=== PATIENT | female | born 1970 | race Two or more races ===

== ENCOUNTER 2021-06-19 09:17 | Emergency (ER) | payer OTHER ==
[~2021-06-19] VITALS: Ht 160 cm; Wt 72.6 kg
== END 2021-06-19 13:29 | disposition home or self-care (01) ==
LOC: ER 09:17
DX: R53.81 Other malaise (principal); B34.9 Viral infection, unspecified; Z03.818 Encounter for observation for suspected exposure to other biological agents ruled out

== ENCOUNTER 2021-07-21 06:24 | Outpatient (CLI) | payer OTHER | END 2021-07-21 06:25 | disposition home or self-care (01) | LOC: LAB 06:24 | PROVIDERS: ATTEND Internal Medicine | DX: D64.89 Other specified anemias (principal); E78.2 Mixed hyperlipidemia; E03.8 Other specified hypothyroidism; E11.9 Type 2 diabetes mellitus without complications ==

== ENCOUNTER 2021-09-07 12:41 | Outpatient (CLI) | payer OTHER | END 2021-09-07 13:02 | disposition home or self-care (01) | LOC: TOM 12:41 | PROVIDERS: ATTEND Internal Medicine | DX: J20.8 Acute bronchitis due to other specified organisms (principal) ==

== ENCOUNTER 2021-10-24 06:11 | Outpatient (CLI) | payer OTHER | END 2021-10-24 06:12 | disposition home or self-care (01) | LOC: LAB 06:11 | PROVIDERS: ATTEND Internal Medicine | DX: E03.8 Other specified hypothyroidism (principal); D64.89 Other specified anemias; E78.2 Mixed hyperlipidemia; E11.9 Type 2 diabetes mellitus without complications; E55.9 Vitamin D deficiency, unspecified ==

== ENCOUNTER 2021-11-13 10:17 | Emergency (ER) | payer OTHER ==
[~2021-11-13] VITALS: Ht 160 cm; Wt 71.7 kg
== END 2021-11-13 16:54 | disposition home or self-care (01) ==
LOC: ER 10:17
DX: R10.9 Unspecified abdominal pain (principal); R11.0 Nausea

== ENCOUNTER 2022-01-07 05:55 | Emergency (ER) | payer OTHER ==
[~2022-01-07] VITALS: Ht 160 cm; Wt 72.6 kg
[2022-01-07] MEDS ORDERED: PERCOCET 5-3251 EACH PO (06:46)
[2022-01-07] MEDS ORDERED: KETO10TA2 PO (06:46)
== END 2022-01-07 06:54 | disposition home or self-care (01) ==
LOC: ER 05:55
DX: M25.512 Pain in left shoulder (principal)

== ENCOUNTER 2022-01-09 10:33 | Outpatient (CLI) | payer OTHER ==
[~2022-01-09 10:33] MED LIST: KETO10TA2 PO; PERCOCET 5-3251 EACH PO
== END 2022-01-09 10:57 | disposition home or self-care (01) ==
LOC: MRI 10:33
PROVIDERS: ATTEND Orthopaedic Surgery
DX: M65.812 Other synovitis and tenosynovitis, left shoulder (principal)
CPT/HCPCS: 73218

== ENCOUNTER 2022-01-10 06:29 | Outpatient (CLI) | payer OTHER | END 2022-01-10 06:30 | disposition home or self-care (01) | LOC: LAB 06:29 | PROVIDERS: ATTEND Internal Medicine | DX: E55.9 Vitamin D deficiency, unspecified (principal); E78.2 Mixed hyperlipidemia; E03.8 Other specified hypothyroidism; E11.9 Type 2 diabetes mellitus without complications; N39.0 Urinary tract infection, site not specified ==

== ENCOUNTER 2022-02-08 06:19 | Outpatient (CLI) | payer OTHER ==
[2022-02-08] MEDS ORDERED: ACETAMINOPHEN500 M2 (13:32)
== END 2022-02-08 06:20 | disposition home or self-care (01) ==
LOC: LAB 06:19
PROVIDERS: ATTEND Internal Medicine
DX: N39.0 Urinary tract infection, site not specified (principal)

== ENCOUNTER 2022-03-10 06:16 | Outpatient (CLI) | payer OTHER ==
[~2022-03-10 06:16] MED LIST changes: +ACETAMINOPHEN500 M2
== END 2022-03-10 06:22 | disposition home or self-care (01) ==
LOC: LAB 06:16
PROVIDERS: ATTEND Orthopaedic Surgery
DX: D68.9 Coagulation defect, unspecified (principal); Z03.818 Encounter for observation for suspected exposure to other biological agents ruled out; S83.271A Complex tear of lateral meniscus, current injury, right knee, initial encounter

== ENCOUNTER 2022-03-13 16:08 | Emergency (ER) | payer OTHER ==
[~2022-03-13] VITALS: Ht 160 cm; Wt 70.3 kg
[2022-03-13] MEDS ORDERED: MULTI VITAMIN1 EACH PO (16:21)
== END 2022-03-13 16:50 | disposition home or self-care (01) ==
LOC: ER 16:08
DX: M75.02 Adhesive capsulitis of left shoulder (principal); M25.512 Pain in left shoulder

== ENCOUNTER 2022-04-11 08:30 | Outpatient (CLI) | payer OTHER ==
[~2022-04-11 08:30] MED LIST changes: +MULTI VITAMIN1 EACH PO
== END 2022-04-11 08:31 | disposition home or self-care (01) ==
LOC: NUCLEAR 08:30
PROVIDERS: ATTEND Internal Medicine
DX: M81.0 Age-related osteoporosis without current pathological fracture (principal)

== ENCOUNTER 2022-04-12 05:48 | Emergency (ER) | payer OTHER ==
[~2022-04-12] VITALS: Ht 160 cm; Wt 70.3 kg
== END 2022-04-12 10:31 | disposition home or self-care (01) ==
LOC: ER 05:48
DX: T78.40XA Allergy, unspecified, initial encounter (principal); X58.XXXA Exposure to other specified factors, initial encounter

== ENCOUNTER 2022-04-18 06:30 | Outpatient (CLI) | payer OTHER | END 2022-04-18 06:31 | disposition home or self-care (01) | LOC: LAB 06:30 | PROVIDERS: ATTEND Internal Medicine | DX: E11.9 Type 2 diabetes mellitus without complications (principal); E78.2 Mixed hyperlipidemia; D69.9 Hemorrhagic condition, unspecified; E03.9 Hypothyroidism, unspecified ==

== ENCOUNTER 2022-04-18 07:07 | Outpatient (CLI) | payer OTHER | END 2022-04-18 07:14 | disposition home or self-care (01) | LOC: MAMO-SONO 07:07 | PROVIDERS: ATTEND Internal Medicine | DX: N60.11 Diffuse cystic mastopathy of right breast (principal); N60.12 Diffuse cystic mastopathy of left breast ==

== ENCOUNTER → 2022-09-11 06:26 | Outpatient (CLI) | payer OTHER | END | disposition home or self-care (01) | LOC: LAB 06:26 | PROVIDERS: ATTEND Internal Medicine | DX: E55.9 Vitamin D deficiency, unspecified (principal); E78.2 Mixed hyperlipidemia; E03.0 Congenital hypothyroidism with diffuse goiter; E11.9 Type 2 diabetes mellitus without complications; D64.9 Anemia, unspecified ==

== ENCOUNTER 2022-09-30 02:48 | Emergency (ER) | payer OTHER ==
[~2022-09-30] VITALS: Ht 160 cm; Wt 72.6 kg
== END 2022-09-30 06:53 | disposition home or self-care (01) ==
LOC: ER 02:48
DX: B34.9 Viral infection, unspecified (principal)

== ENCOUNTER 2022-11-10 07:29 | Outpatient (CLI) | payer OTHER | END 2022-11-10 07:31 | disposition home or self-care (01) | LOC: MAMO-SONO 07:29 | PROVIDERS: ATTEND Obstetrics & Gynecology | DX: D24.9 Benign neoplasm of unspecified breast (principal); N64.4 Mastodynia ==

== ENCOUNTER 2023-03-01 01:51 | Emergency (ER) | payer OTHER ==
[~2023-03-01] VITALS: Ht 160 cm; Wt 74.4 kg
[2023-03-01] MEDS ORDERED: PYRIDIUM DS200 MG PO (04:24)
[2023-03-01] MEDS ORDERED: CEPHALEXIN500 MG PO (04:24)
== END 2023-03-01 04:33 | disposition home or self-care (01) ==
LOC: ER 01:51
DX: N30.80 Other cystitis without hematuria (principal)

== ENCOUNTER 2023-03-21 06:30 | Outpatient (CLI) | payer OTHER ==
[~2023-03-21 06:30] MED LIST changes: +CEPHALEXIN500 MG PO; +PYRIDIUM DS200 MG PO
== END 2023-03-21 06:32 | disposition home or self-care (01) ==
LOC: LAB 06:30
PROVIDERS: ATTEND Internal Medicine
DX: D64.9 Anemia, unspecified (principal); E78.2 Mixed hyperlipidemia; E03.8 Other specified hypothyroidism; E11.9 Type 2 diabetes mellitus without complications

== ENCOUNTER 2023-07-16 13:32 | Outpatient (CLI) | payer OTHER | END 2023-07-16 13:35 | disposition home or self-care (01) | LOC: MAMO-SONO 13:32 | PROVIDERS: ATTEND Surgery Surgical Oncology | DX: D48.62 Neoplasm of uncertain behavior of left breast (principal); D64.2 Secondary sideroblastic anemia due to drugs and toxins ==

== ENCOUNTER 2023-09-04 04:38 | Emergency (ER) | payer OTHER ==
[~2023-09-04] VITALS: Ht 160 cm; Wt 72.6 kg
== END 2023-09-04 07:52 | disposition home or self-care (01) ==
LOC: ER 04:38
DX: G43.909 Migraine, unspecified, not intractable, without status migrainosus (principal)

== ENCOUNTER 2023-09-25 07:08 | Outpatient (CLI) | payer OTHER | END 2023-09-25 07:30 | disposition home or self-care (01) | LOC: TOM 07:08 | DX: G43.019 Migraine without aura, intractable, without status migrainosus (principal) ==

== ENCOUNTER → 2023-11-16 06:06 | Outpatient (CLI) | payer OTHER ==
[2023-11-16 07:36] LABS: URINE APPEARANCE Cloudy; URINE BILIRRUBIN Negative (NEGATIVE); URINE BLOOD Moderate; URINE COLOR Dark Yellow; URINE GLUCOSE Negative (NEGATIVE); URINE LEUKOCYTE Trace; URINE NITRATE Negative; URINE PROTEIN Trace (NEGATIVE)
[2023-11-16 07:39] LABS: HEMATOCRIT 38.7 % (36.0-45.00); HEMOGLOBIN 13.6 g/dL (12.0-15.00); MEAN CELL VOLUME 91.8 fL (80.00-100.00); MEAN CORPUSCULAR HEMOGLOBIN 32.3 pg (27.00-32.0); MEAN CORPUSCULAR HGB CONC 35.1 g/dl (32.0-36.0); PLATELET COUNT 290 K/uL (150-450); RED BLOOD COUNT 4.22 M/uL (4.00-6.00); RED CELL DISTRIBUTION WIDTH 12.8 % (11.5-14.5)
[2023-11-16 07:40] LABS: URINE BACTERIA 6578.1 uL (0.0-1933); URINE EPITHELIAL CELLS 80.9 uL (0.0-38.8); URINE RBC 90.8 uL (0.0-20.8); URINE WBC 15.7 uL (0.0-23.2)
[2023-11-16 08:12] LABS: ALBUMIN 3.7 gm/dL (3.4-5.0); BILIRUBIN TOTAL 0.45 mg/dL (0.3-1.2); CALCIUM 9.1 mg/dL (8.5-10.1); CHOL HDL RATIO 2.8 (0-5.0); CREATININE SERUM 0.55 mg/dL (0.55-1.02); GFR 116.53; GLOBULINA 3.7 G/DL (2.4-3.5); POTASSIUM 4.35 mEq/L (3.5-5.1); TOTAL PROTEIN 7.4 gm/dL (6.4-8.2); TSH 1.47 uIU/mL (0.358-3.74)
== END | disposition home or self-care (01) ==
LOC: LAB 06:06
PROVIDERS: ATTEND Internal Medicine
DX: E11.9 Type 2 diabetes mellitus without complications (principal); E78.2 Mixed hyperlipidemia; D64.9 Anemia, unspecified; E03.8 Other specified hypothyroidism

== ENCOUNTER 2023-12-04 07:13 | Emergency (ER) | payer OTHER ==
[~2023-12-04] VITALS: Ht 160 cm; Wt 70.3 kg
[2023-12-04 09:09] LABS: HEMATOCRIT 39.7 % (36.0-45.00); MEAN CELL VOLUME 91.5 fL (80.00-100.00); MEAN CORPUSCULAR HEMOGLOBIN 32.4 pg (27.00-32.0); MEAN CORPUSCULAR HGB CONC 35.4 g/dl (32.0-36.0); PLATELET COUNT 298 K/uL (150-450); RED BLOOD COUNT 4.34 M/uL (4.00-6.00); RED CELL DISTRIBUTION WIDTH 12.6 % (11.5-14.5)
== END 2023-12-04 10:47 | disposition home or self-care (01) ==
LOC: ER 07:13
PROVIDERS: General Practice
DX: J11.1 Influenza due to unidentified influenza virus with other respiratory manifestations (principal); R53.81 Other malaise; Z20.822 Contact with and (suspected) exposure to COVID-19

== ENCOUNTER → 2024-04-28 | Outpatient (CLI) | payer OTHER | END | disposition home or self-care (01) | LOC: NUCLEAR 13:30 | DX: M81.0 Age-related osteoporosis without current pathological fracture (principal) ==

== ENCOUNTER → 2024-05-19 06:10 | Outpatient (CLI) | payer OTHER ==
[2024-05-19 07:18] LABS: HEMATOCRIT 35.9 % (36.0-45.00); HEMOGLOBIN 12.5 g/dL (12.0-15.00); MEAN CELL VOLUME 90.5 fL (80.00-100.00); MEAN CORPUSCULAR HEMOGLOBIN 31.6 pg (27.00-32.0); MEAN CORPUSCULAR HGB CONC 34.9 g/dl (32.0-36.0); PLATELET COUNT 261 K/uL (150-450); RED BLOOD COUNT 3.97 M/uL (4.00-6.00); RED CELL DISTRIBUTION WIDTH 13.3 % (11.5-14.5)
[2024-05-19 07:22] LABS: URINE EPITHELIAL CELLS 19.1 uL (0.0-38.8); URINE RBC 3.8 uL (0.0-20.8)
[2024-05-19 07:40] LABS: URINE APPEARANCE Clear; URINE BILIRRUBIN Negative (NEGATIVE); URINE BLOOD Negative; URINE COLOR Yellow; URINE GLUCOSE Negative (NEGATIVE); URINE KETONE Negative (NEGATIVE); URINE LEUKOCYTE Negative; URINE NITRATE Negative; URINE PROTEIN Negative (NEGATIVE); URINE UROBILINOGEN 0.2 E.U./dl
[2024-05-19 07:53] LABS: ALBUMIN 3.5 gm/dL (3.4-5.0); BILIRUBIN TOTAL 0.38 mg/dL (0.3-1.2); CALCIUM 9.2 mg/dL (8.5-10.1); CREATININE SERUM 0.48 mg/dL (0.55-1.02); GFR 135.81; GLOBULINA 3.3 G/DL (2.4-3.5); POTASSIUM 3.39 mEq/L (3.5-5.1); TOTAL PROTEIN 6.8 gm/dL (6.4-8.2); TSH 1.84 uIU/mL (0.358-3.74)
[2024-05-19 07:57] LABS: URINE WBC 1.3 uL (0.0-23.2)
== END | disposition home or self-care (01) ==
LOC: LAB 06:10
PROVIDERS: ATTEND Internal Medicine
DX: E78.2 Mixed hyperlipidemia (principal); E03.8 Other specified hypothyroidism; D64.9 Anemia, unspecified; E11.9 Type 2 diabetes mellitus without complications

== ENCOUNTER → 2024-08-21 06:21 | Outpatient (CLI) | payer OTHER ==
[2024-08-21 07:37] LABS: HEMATOCRIT 37.9 % (36.0-45.00); HEMOGLOBIN 12.8 g/dL (12.0-15.00); MEAN CELL VOLUME 90.7 fL (80.00-100.00); MEAN CORPUSCULAR HEMOGLOBIN 30.5 pg (27.00-32.0); MEAN CORPUSCULAR HGB CONC 33.6 g/dl (32.0-36.0); PLATELET COUNT 284 K/uL (150-450); RED BLOOD COUNT 4.18 M/uL (4.00-6.00)
[2024-08-21 07:56] LABS: URINE APPEARANCE Clear; URINE BILIRRUBIN Negative (NEGATIVE); URINE BLOOD Small; URINE COLOR Yellow; URINE GLUCOSE Negative (NEGATIVE); URINE KETONE Negative (NEGATIVE); URINE LEUKOCYTE Negative; URINE NITRATE Negative; URINE PROTEIN Negative (NEGATIVE)
[2024-08-21 08:00] LABS: URINE BACTERIA 1867.1 uL (0.0-1933); URINE EPITHELIAL CELLS 18.7 uL (0.0-38.8); URINE RBC 13.8 uL (0.0-20.8); URINE WBC 8.8 uL (0.0-23.2)
[2024-08-21 08:09] LABS: URINE CAST 0.15 uL (0.0-1.40)
[2024-08-21 08:42] LABS: ALBUMIN 3.6 gm/dL (3.4-5.0); BILIRUBIN TOTAL 0.29 mg/dL (0.3-1.2); CALCIUM 9.7 mg/dL (8.5-10.1); CHOL HDL RATIO 2.3 (0-5.0); CREATININE SERUM 0.6 mg/dL (0.55-1.02); GFR 104.98; GLOBULINA 3.4 G/DL (2.4-3.5); POTASSIUM 4.5 mEq/L (3.5-5.1); T4 TOTAL 9.7 UG/DL (4.8-13.9); TSH 1.69 uIU/mL (0.358-3.74)
[2024-08-22 10:10] LABS: FOLLICLE STIMULATING HORMONE 80.5 mIU/mL (.); LEUTEINIZING HORMONE 29.1 mIU/mL (.)
== END | disposition home or self-care (01) ==
LOC: LAB 06:21
PROVIDERS: ATTEND Internal Medicine
DX: G43.119 Migraine with aura, intractable, without status migrainosus (principal); E03.9 Hypothyroidism, unspecified; E55.9 Vitamin D deficiency, unspecified; E66.89 Other obesity not elsewhere classified; M79.7 Fibromyalgia; N92.4 Excessive bleeding in the premenopausal period

== ENCOUNTER 2024-08-23 09:00 | Outpatient (CLI) | payer OTHER ==
[2024-08-23 11:11] LABS: ob NEGATIVE (NEGATIVE)
== END 2024-08-23 09:06 | disposition home or self-care (01) ==
LOC: LAB 09:00
PROVIDERS: ATTEND Internal Medicine
DX: G43.119 Migraine with aura, intractable, without status migrainosus (principal); E03.9 Hypothyroidism, unspecified; E55.9 Vitamin D deficiency, unspecified; E66.89 Other obesity not elsewhere classified; M79.7 Fibromyalgia; N92.4 Excessive bleeding in the premenopausal period

== ENCOUNTER 2024-09-18 07:09 | Outpatient (CLI) | payer OTHER | END 2024-09-18 07:16 | disposition home or self-care (01) | LOC: MAMO-SONO 07:09 | PROVIDERS: ATTEND Surgery Surgical Oncology | DX: D48.62 Neoplasm of uncertain behavior of left breast (principal); D24.2 Benign neoplasm of left breast ==

== ENCOUNTER 2024-11-11 06:26 | Outpatient (CLI) | payer OTHER ==
[2024-11-11 06:56] LABS: HEMATOCRIT 37.4 % (36.0-45.00); HEMOGLOBIN 12.8 g/dL (12.0-15.00); MEAN CELL VOLUME 92.4 fL (80.00-100.00); MEAN CORPUSCULAR HEMOGLOBIN 31.7 pg (27.00-32.0); MEAN CORPUSCULAR HGB CONC 34.3 g/dl (32.0-36.0); PLATELET COUNT 274 K/uL (150-450); RED BLOOD COUNT 4.05 M/uL (4.00-6.00); RED CELL DISTRIBUTION WIDTH 13.5 % (11.5-14.5)
[2024-11-11 07:42] LABS: ALBUMIN 3.6 gm/dL (3.4-5.0); BILIRUBIN TOTAL 0.3 mg/dL (0.3-1.2); CALCIUM 9.8 mg/dL (8.5-10.1); CREATININE SERUM 0.55 mg/dL (0.55-1.02); GFR 116.07; GLOBULINA 3.5 G/DL (2.4-3.5); POTASSIUM 4.45 mEq/L (3.5-5.1); T4 TOTAL 9.7 UG/DL (4.8-13.9); TOTAL PROTEIN 7.1 gm/dL (6.4-8.2); TSH 1.87 uIU/mL (0.358-3.74)
[2024-11-11 10:03] LABS: T3 TOTAL 1.33 ng/ml (0.846-2.02); VITAMIN D3 25 HYDROXY 39.44 ng/ml (30-120)
== END 2024-11-11 06:27 | disposition home or self-care (01) ==
LOC: LAB 06:26
PROVIDERS: ATTEND Internal Medicine
DX: G43.119 Migraine with aura, intractable, without status migrainosus (principal); E03.9 Hypothyroidism, unspecified; E55.9 Vitamin D deficiency, unspecified; M79.7 Fibromyalgia; N92.4 Excessive bleeding in the premenopausal period

== ENCOUNTER 2024-12-11 07:04 | Outpatient (CLI) | payer OTHER | END 2024-12-11 07:07 | disposition home or self-care (01) | LOC: RAD 07:04 | PROVIDERS: ATTEND Chiropractor | DX: M99.01 Segmental and somatic dysfunction of cervical region (principal); M99.02 Segmental and somatic dysfunction of thoracic region; M99.03 Segmental and somatic dysfunction of lumbar region ==

== ENCOUNTER → 2025-02-02 06:29 | Outpatient (CLI) | payer OTHER ==
[2025-02-02 07:32] LABS: HEMATOCRIT 36.1 % (36.0-45.00); HEMOGLOBIN 12.6 g/dL (12.0-15.00); MEAN CELL VOLUME 92.5 fL (80.00-100.00); MEAN CORPUSCULAR HEMOGLOBIN 32.2 pg (27.00-32.0); MEAN CORPUSCULAR HGB CONC 34.8 g/dl (32.0-36.0); PLATELET COUNT 253 K/uL (150-450); RED BLOOD COUNT 3.91 M/uL (4.00-6.00)
[2025-02-02 07:35] LABS: URINE APPEARANCE Clear; URINE BILIRRUBIN Negative (NEGATIVE); URINE BLOOD Negative; URINE COLOR Yellow; URINE GLUCOSE Negative (NEGATIVE); URINE KETONE Negative (NEGATIVE); URINE LEUKOCYTE Negative; URINE NITRATE Negative; URINE PROTEIN Negative (NEGATIVE); URINE UROBILINOGEN 0.2 E.U./dl
[2025-02-02 07:40] LABS: URINE RBC 3.2 uL (0.0-20.8); URINE WBC 7.1 uL (0.0-23.2)
[2025-02-02 07:45] LABS: URINE CAST 0.14 uL (0.0-1.40)
[2025-02-02 08:22] LABS: CHOLESTEROL 165 mg/dL (0-200); TRIGLYCERIDES 123 mg/dL (0-150)
[2025-02-02 08:23] LABS: ALBUMIN 3.6 gm/dL (3.4-5.0); BILIRUBIN TOTAL 0.3 mg/dL (0.3-1.2); CALCIUM 9.1 mg/dL (8.5-10.1); CREATININE SERUM 0.53 mg/dL (0.55-1.02); GFR 121.14; GLOBULINA 3.6 G/DL (2.4-3.5); POTASSIUM 4.13 mEq/L (3.5-5.1); TOTAL PROTEIN 7.2 gm/dL (6.4-8.2)
== END | disposition home or self-care (01) ==
LOC: LAB 06:29
PROVIDERS: ATTEND Internal Medicine
DX: G43.119 Migraine with aura, intractable, without status migrainosus (principal); E03.9 Hypothyroidism, unspecified; E55.9 Vitamin D deficiency, unspecified; M79.7 Fibromyalgia; N92.4 Excessive bleeding in the premenopausal period

== ENCOUNTER 2025-05-09 07:45 | Outpatient (CLI) | payer OTHER ==
[2025-05-09 08:20] LABS: URINE APPEARANCE Cloudy; URINE BACTERIA 4071.5 uL (0.0-1933); URINE BILIRRUBIN Negative (NEGATIVE); URINE BLOOD Small; URINE COLOR Yellow; URINE GLUCOSE Negative (NEGATIVE); URINE KETONE Negative (NEGATIVE); URINE LEUKOCYTE Trace; URINE NITRATE Negative; URINE PROTEIN Negative (NEGATIVE); URINE RBC 7.9 uL (0.0-20.8); URINE UROBILINOGEN 0.2 E.U./dl; URINE WBC 185.3 uL (0.0-23.2)
[2025-05-09 08:25] LABS: BASO % 1.0 % (0.1-1.2); EOS # 0.14 (0.04-0.54); EOS % 1.9 % (0.7-7.0); LYMPH # 2.21 (1.18-3.74); LYMPH % 30.0 % (19.3-53.1); MEAN PLATELET VOLUME 9.90 fl (9.4-12.4); MONO # 0.47 (0.24-0.82); MONO % 6.4 % (4.7-12.5); NEUT # 4.45 (1.56-6.13); NEUT % 60.4 % (34.0-71.1); RED CELL DISTRIBUTION WIDTH 12.7 % (11.6-14.4)
[2025-05-09 09:15] LABS: URINE CAST 0.14 uL (0.0-1.40); URINE EPITHELIAL CELLS > 201.7 uL (0.0-38.8)
[2025-05-09 09:51] LABS: ALT/SGPT 22.0 U/L (12-78); AST/SGOT 13.0 U/L (15-37); BILIRUBIN TOTAL 0.55 mg/dL (0.3-1.2); BUN CREA RATIO 16.0 (7.0-25.0); CREATININE SERUM 0.51 mg/dL (0.55-1.02); GFR 126.14; GLOBULINA 3.3 G/DL (2.4-3.5); GLUCOSE FASTING 86.0 mg/dL (65-100); OSMOLALITY SERUM 279.0 MOSM/KG (275-295); T3 UPTAKE 33.0 % (30-39); T4 TOTAL 8.76 UG/DL (4.8-13.9); TSH 1.26 uIU/mL (0.358-3.74)
[2025-05-11 14:52] LABS: T3 TOTAL 1.05 ng/ml (0.846-2.02); VITAMIN D3 25 HYDROXY 31.81 ng/ml (30-120)
== END 2025-05-09 08:31 | disposition home or self-care (01) ==
LOC: LAB 07:45
PROVIDERS: ATTEND Internal Medicine
DX: G43.119 Migraine with aura, intractable, without status migrainosus (principal); E03.9 Hypothyroidism, unspecified; E55.9 Vitamin D deficiency, unspecified; M79.7 Fibromyalgia; N92.4 Excessive bleeding in the premenopausal period; Z12.11 Encounter for screening for malignant neoplasm of colon

== ENCOUNTER 2025-05-11 06:47 | Outpatient (CLI) | payer OTHER ==
[2025-05-11 12:22] LABS: ob NEGATIVE (NEGATIVE)
== END 2025-05-11 06:49 | disposition home or self-care (01) ==
LOC: LAB 06:47
PROVIDERS: ATTEND Internal Medicine
DX: G43.119 Migraine with aura, intractable, without status migrainosus (principal); E03.9 Hypothyroidism, unspecified; E55.9 Vitamin D deficiency, unspecified; M79.7 Fibromyalgia; N92.4 Excessive bleeding in the premenopausal period

== ENCOUNTER 2025-07-10 08:22 | Outpatient (CLI) | payer OTHER | END 2025-07-10 08:25 | disposition home or self-care (01) | LOC: LAB 08:22 | DX: R89.1 Abnormal level of hormones in specimens from other organs, systems and tissues (principal) ==

== ENCOUNTER 2025-08-15 07:19 | Outpatient (CLI) | payer OTHER ==
[2025-08-15 09:15] LABS: URINE APPEARANCE Clear; URINE BILIRRUBIN Negative (NEGATIVE); URINE BLOOD Negative; URINE COLOR Yellow; URINE GLUCOSE Negative (NEGATIVE); URINE KETONE Negative (NEGATIVE); URINE LEUKOCYTE Negative; URINE NITRATE Negative; URINE PROTEIN Negative (NEGATIVE); URINE UROBILINOGEN 0.2 E.U./dl
[2025-08-15 09:21] LABS: URINE BACTERIA 53.9 uL (0.0-1933); URINE EPITHELIAL CELLS 3.0 uL (0.0-38.8); URINE RBC 2.3 uL (0.0-20.8)
[2025-08-15 09:26] LABS: BASO % 0.8 % (0.1-1.2); EOS # 0.10 (0.04-0.54); EOS % 1.6 % (0.7-7.0); LYMPH # 2.37 (1.18-3.74); LYMPH % 37.3 % (19.3-53.1); MEAN PLATELET VOLUME 10.00 fl (9.4-12.4); MONO # 0.41 (0.24-0.82); MONO % 6.4 % (4.7-12.5); NEUT # 3.41 (1.56-6.13); NEUT % 53.6 % (34.0-71.1); RED CELL DISTRIBUTION WIDTH 12.1 % (11.6-14.4)
[2025-08-15 09:31] LABS: URINE CAST 0.00 uL (0.0-1.40); URINE WBC 1.3 uL (0.0-23.2)
[2025-08-15 10:42] LABS: ALT/SGPT 21.0 U/L (12-78); AST/SGOT 11.0 U/L (15-37); BILIRUBIN TOTAL 0.48 mg/dL (0.3-1.2); BUN CREA RATIO 24.0 (7.0-25.0); CREATININE SERUM 0.55 mg/dL (0.55-1.02); GFR 115.62; GLOBULINA 3.1 G/DL (2.4-3.5); GLUCOSE FASTING 87.0 mg/dL (65-100); OSMOLALITY SERUM 284.0 MOSM/KG (275-295); T3 UPTAKE 31.0 % (30-39); T4 TOTAL 9.57 UG/DL (4.8-13.9); TSH 1.11 uIU/mL (0.358-3.74)
[2025-08-17 15:33] LABS: T3 TOTAL 1.19 ng/ml (0.846-2.02); VITAMIN D3 25 HYDROXY 34.09 ng/ml (30-120)
== END 2025-08-15 07:25 | disposition home or self-care (01) ==
LOC: LAB 07:19
PROVIDERS: ATTEND Internal Medicine
DX: G43.119 Migraine with aura, intractable, without status migrainosus (principal); E03.9 Hypothyroidism, unspecified; E55.9 Vitamin D deficiency, unspecified; M79.7 Fibromyalgia; N92.4 Excessive bleeding in the premenopausal period; Z13.820 Encounter for screening for osteoporosis

== ENCOUNTER 2025-09-24 07:18 | Outpatient (CLI) | payer OTHER | END 2025-09-24 14:00 | disposition home or self-care (01) | LOC: MAMO-SONO 07:18 | DX: D24.2 Benign neoplasm of left breast (principal); Z12.31 Encounter for screening mammogram for malignant neoplasm of breast ==